=== PATIENT | male | born 1935 | race Caucasian/White ===

== ENCOUNTER → 2016-04-24 | Outpatient (CLI) | payer MEDICARE ==
[~2016-04-24] MED LIST: ASPIRIN81 M1 PO; GLYBURIDE2.5 M1 PO; KEFLEX500 MG PO; LIPITOR20 MG PO; METFORMIN HCL500 M1 PO; MUCINEX D1 TAB.SR1 PO; NORVASC PO; PROTONIX PO; SILVADENE TOP; TOPROL XL PO; ZESTORETIC 20/21 TAB PO
--- NOTE | ~2016-04-24 | US85 ---
[facility] A Service [facility] RADIOLOGY TEXT RESULTS PATIENT: LON OCASIO LOCATION: [facility] : 34 UNIT #: [id number] AGE: [address]: Wilbert Ogden MD SEX: M ORDER DR: [id number] [place] [id number] O MR#: [id number] Acc #: [id number] NAME: LON OCASIO : 1935 SEX: M STUDY DATE/TIME: 04/24/2016 9:49 UNIT: SGUS ROOM: STUDY DESCRIPTION: LE Veins Unilat or Ltd Stdy Attending Physician: Wilbert Ogden Referring Physician: Wilbert Ogden Ordering Physician: Delmar Ogden M.D. Primary Care Physician: Wilbert Ogden MEDICAL IMAGING REPORT This report is preliminary unless electronic signature is present. EXAM Left lower extremity venous duplex 04/24/2016 HISTORY Left lower extremity pain and swelling for one and one-half month with history of previous left lower extremity deep vein thrombosis in 2006. TECHNIQUE Venous ultrasound examination of the left lower extremity was performed using grayscale, spectral Doppler and color flow Doppler imaging. FINDINGS The examination is negative. There is no evidence of left lower extremity deep venous thrombus from the groin to the lower calf. Visualized greater saphenous vein is also patent. IMPRESSION Negative examination. No evidence of left lower extremity deep venous thrombosis. Dictated by... Ortiz Hernandez M.D. THIS IS AN ELECTRONICALLY VERIFIED REPORT Ortiz Hernandez M.D. at 04/24/2016 4:50 PM [facility]/lavelle TD: 04/24/2016 13:22 JOB #: [id number] [facility] A Service [facility] RADIOLOGY TEXT RESULTS PATIENT: LON OCASIO LOCATION: [facility] : 34 UNIT #: [id number] AGE: [address]: Wilbert Ogden MD SEX: M ORDER DR: MEDICAL IMAGING REPORT
--- NOTE | ~2016-04-24 | US79 ---
[facility] A Service of [facility] RADIOLOGY TEXT RESULTS PATIENT: LON OCASIO LOCATION: [facility] : 34 UNIT #: [id number] AGE: [address]: Wilbert Ogden MD SEX: M ORDER DR: [id number] [address] [address] [id number] O MR#: [id number] Acc #: [id number] NAME: LON OCASIO : 1935 SEX: M STUDY DATE/TIME: 04/24/2016 10:08 UNIT: SG ROOM: STUDY DESCRIPTION: US Kidney Duplex Limited Attending Physician: Wilbert Ogden Referring Physician: Wilbert Ogden Ordering Physician: Delmar Ogden M.D. Primary Care Physician: Wilbert Ogden MEDICAL IMAGING REPORT This report is preliminary unless electronic signature is present. EXAM Bilateral renal ultrasound DATE: 04/24/2016. Please note: the title of this report made electronically as renal duplex. It is not a renal artery duplex study. This is a bilateral renal ultrasound study. HISTORY 80-year-old male with bilateral lower extreme swelling for half a month. Left lower extremity swelling. History of cardiac disease. COMPARISON CT abdomen and pelvis with contrast 02/14/2011. FINDINGS Right kidney measures 12.8 x 9.1 x 5.6 cm. The left kidney measures 12.0 x 6.8 x 5.0 cm. Questionable nonshadowing, but on the right lower renal pole measures 2 mm. Questionable nonshadowing stone in the left mid kidney measures 5-6 mm. Questionable nonshadowing stone in the left mid kidney 5 mm. No right or left hydronephrosis. Normal cortical thickness and echotexture bilaterally. No cystic or solid renal lesions are identified. Urinary bladder pre voided volume 305 mL, post void volume 216. There is prostatic nodular protrusion into the urinary bladder base, and bilateral ureteral jets are demonstrated. IMPRESSION 1. Questionable small nonobstructing bilateral intrarenal calculi as described above. 2. No right or left hydronephrosis. No cystic or solid renal mass STS. [facility] A Service of [facility] & [facility] RADIOLOGY TEXT RESULTS PATIENT: LON OCASIO LOCATION: [facility] : 34 UNIT #: [id number] AGE: [address]: Wilbert Ogden MD SEX: M ORDER DR: lesion is evident. 3. Enlarged prostate gland with nodular protrusion into the bladder base. This is also seen on the CT from 02/14/2011. Dictated by... Olive Saavedra M.D. THIS IS AN ELECTRONICALLY VERIFIED REPORT Olive Saavedra M.D. at 04/28/2016 8:[address] [facility]/lavelle TD: 04/27/2016 09:39 JOB #: [id number] MEDICAL IMAGING REPORT
== END | disposition home or self-care (01) ==
LOC: SGUS 09:22
DX: N28.9 Disorder of kidney and ureter, unspecified (principal); M79.89 Other specified soft tissue disorders; N40.0 Benign prostatic hyperplasia without lower urinary tract symptoms; R60.0 Localized edema; Z86.718 Personal history of other venous thrombosis and embolism
CPT/HCPCS: 76770; 93971; 93976